=== PATIENT | female | born 1975 | race Caucasian/White ===

== ENCOUNTER 2017-10-16 09:26 | Emergency (ER) | payer MEDICARE, BC, SELFPAY ==
[2017-10-16 09:27] VITALS: BP 127/77; PULSE 70; RESP 20; TEMP 37.1; O2SAT 96; BMI 38.7
[2017-10-16 10:01] LABS: Microscopic,Cath URINE MICROSCOPIC (MICROSCOPIC)
[2017-10-16 10:04] LABS: Appearance,Urine/Cath SL CLOUDY (Clear); Blood, Urine/Cath TRACE-L (Negative); Color,Urine/Cath YELLOW (Yellow); Glucose,Urine/Cath (UA) Negative (Negative); Ketones,Urine/Cath Negative (Negative); Leukocyte Esterase,Cath 2+ (Negative); Nitrate,Cath POSITIVE (Negative); Protein,Urine/Cath TRACE (Negative); Specific Gravity, Urine/Cath >= 1.030 (1.005-1.030)
[2017-10-16 10:05] LABS: Basophils % 0.5 % (0.1-2.0); Eosinophils # 0.3 K/mm3 (0.0-0.4); Hematocrit 43.6 % (37.0-47.0); Hemoglobin 14.4 g/dL (12.2-16.2); Lymphocytes # 2.6 K/mm3 (0.7-4.5); Mean Corpuscular Hemoglobin 30.7 pg (27.0-31.2); Mean Corpuscular Volume 93.2 fl (81-99); Mean Platelet Volume 8.9 fl (7.4-10.4); Monocytes # 0.5 K/mm3 (0.1-1.0); Monocytes % 6.4 % (1.7-9.3); Neutrophils # 4.9 K/mm3 (1.8-7.8); Neutrophils % 58.1 % (37.0-80.0); Platelet Count 268 K/mm3 (142-424); Red Blood Count 4.68 M/mm3 (4.20-5.40); Red Cell Distribution Width 13.7 % (11.5-17.5); White Blood Count 8.5 K/mm3 (4.8-10.8)
[2017-10-16 10:14] LABS: Alanine Aminotransferase 25 U/L (12-78); Albumin Level 3.3 gm/dL (3.4-5.0); Albumin/Globulin Ratio 0.9 (1.1-1.8); Alkaline Phosphatase 76 U/L (46-116); Anion Gap 11.5 mEq/L (5-15); Aspartate Amino Transferase 11 U/L (15-37); Bilirubin,Total 0.6 mg/dL (0.2-1.0); Blood Urea Nitrogen 12 mg/dL (7-18); Calcium 8.4 mg/dL (8.5-10.1); Carbon Dioxide 27 mmol/L (21.0-32.0); Chloride 106 mmol/L (98-107); Creatinine Clearance Estimated 111 mL/min (0-300); Creatinine,Serum 0.94 mg/dL (0.55-1.02); Estimated Glomerular Filt Rate 65 ml/min (>60); GFR (African American) 79 ML/MIN (>60); Globulin 3.7 gm/dl (1.3-3.2); Glucose 91 mg/dL (74-106); Potassium 3.5 mmoL/L (3.5-5.1); Sodium 141 mmol/L (136-145)
[2017-10-16 10:18] LABS: Bilirubin,Cath Negative (Negative)
[2017-10-16 10:19] LABS: Bacteria,Urine/Cath 3+ /lpf; RBC,Urine/Cath Occasional # /hpf (0-3); Squamous Epithelial Ur./Cath Occasional #/hpf (0-5)
--- NOTE | 2017-10-16 10:32 | HMH.EDGENADL ---
ED Disposition Clinical Impression: UTI (urinary tract infection) Disposition: Home, Self-Care Condition on Discharge: Fair Instructions: DI for Urinary Tract Infection (UTI), DI for Urinary Tract Infection in Children Additional Instructions: 1- increase uop. 2- start cipro 500 mg po bid. 3- follow up with Dr House in 2 days for a recheck and urine culture. 4- return for fever, vomitng, or any other sx. Prescriptions: Ciprofloxacin HCl [Cipro 500mg Tab] 500 mg PO BID #14 tab Referrals: Provider,MD Malaika [Primary Care Provider] - Addison Mata MD [Staff Physician] - - Critical Care Critical Care Time: No Attestation: On 10/16/17, the high probability of a clinically significant, sudden or life threatening deterioration of the following system(s) required my full and direct attention, intervention and personal management. The time I documented below is in addition to time spent performing reported procedures but includes the following listed in this critical care notation. Medical Decision Making - Medical Records Medical records reviewed: Yes: I reviewed the patient's medical records. Vital Signs: 10/16/17 09:27 Temperature 98.7 F Temperature Source Oral Pulse Rate [Right Radial] 70 Respiratory Rate 20 Blood Pressure [Right Arm] 127/77 Blood Pressure Mean [Right Arm] 93 Blood Pressure Position [Right Arm] Sitting 02 Sat by Pulse Oximetry 96 Oxygen Delivery Method Room Air - Lab Data Lab Results 10/16/17 09:50: WBC 8.5, RBC 4.68, Hgb 14.4, Hct 43.6, MCV 93.2, MCH 30.7, MCHC 33.0, RDW 13.7, Plt Count 268, MPV 8.9, Neut % (Auto) 58.1, Lymph % (Auto) 31.0, [place] % (Auto) 6.4, Eos % (Auto) 4.0, Baso % (Auto) 0.5, Neut # (Auto) 4.9, Lymph # (Auto) 2.6, [place] # (Auto) 0.5, Eos # (Auto) 0.3, Baso # (Auto) 0.0 10/16/17 09:50: Sodium 141, Potassium 3.5, Chloride 106, Carbon Dioxide 27, Anion Gap 11.5, BUN 12, Creatinine 0.94, Estimated Creat Clear 111, Estimated GFR 65, Est GFR ( Amer) 79, Glucose 91, Calcium 8.4 L, Total Bilirubin 0.6, AST 11 L, ALT 25, Alkaline Phosphatase 76, Total Protein 7.0, Albumin 3.3 L, Globulin 3.7 H, Albumin/Globulin Ratio 0.9 L 10/16/17 09:50: Urine Color Yellow, Urine Appearance Sl cloudy, Urine pH 6.0, Ur Specific [place] >= 1.030, Urine Protein Trace, Urine Glucose (UA) Negative, Urine Ketones Negative, Urine Blood Trace-l, Urine Nitrate Positive, Urine Bilirubin Negative, Urine Urobilinogen 1.0, Ur Leukocyte Esterase 2+ A, Urine RBC Occasional, Urine WBC 5-10, Ur Squamous Epith Cells Occasional, Urine Bacteria 3+ A Result diagrams: 10/16/17 09:50 10/16/17 09:50 Orders (Tests/Meds): ED MEDICATIONS Generic Name Dose Route Start Last Admin Trade Name Freq PRN Reason Stop Dose Admin Ceftriaxone Sodium 1 gm/ 50 mls @ 100 mls/hr 10/16/17 10:45 Sodium Chloride IV 10/30/17 10:44 Q24H COUNTS INCLUDE 234 BEDS AT THE [facility] ORDERS Category Date Time Status Urine Culture(cathed specimen) Stat Micro 10/16/17 09:50 Received - Zhen Inquiry Pt receiving controlled substance: No Zhen was queried for this patient: No Medical Decision Making Narrative: The patient had no focal complain, fact she had no complaint at all. Her vitals were within normal limits. CBC and CMP were within normal limits. Her urine analysis revealed positive bacteriuria and nitrates. I spoke with Azalea at [facility] and advised her for increased water and Gatorade intake. Observe her urine output. Start her on antibiotic and follow-up with the primary care physician in 2 days for urine culture. General Adult HPI - General Chief complaint: Urogenital-Female Stated complaint: unable to void Mode of Arrival: EMS Limitations: Physical Limitations Description of Symptoms (Recalled from ER Triage Doc. 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
--- NOTE | 2017-10-16 10:38 | ED_ITS ---
ED Disposition Clinical Impression: UTI (urinary tract infection) Disposition: Home, Self-Care Condition on Discharge: Fair Instructions: DI for Urinary Tract Infection (UTI), DI for Urinary Tract Infection in Children Additional Instructions: 1- increase uop. 2- start cipro 500 mg po bid. 3- follow up with Dr House in 2 days for a recheck and urine culture. 4- return for fever, vomitng, or any other sx. Prescriptions: Ciprofloxacin HCl [Cipro 500mg Tab] 500 mg PO BID #14 tab Referrals: Provider,MD Malaika [Primary Care Provider] - Addison Mata MD [Staff Physician] - - Critical Care Critical Care Time: No Attestation: On 10/16/17, the high probability of a clinically significant, sudden or life threatening deterioration of the following system(s) required my full and direct attention, intervention and personal management. The time I documented below is in addition to time spent performing reported procedures but includes the following listed in this critical care notation. Medical Decision Making - Medical Records Medical records reviewed: Yes: I reviewed the patient's medical records. Vital Signs: 10/16/17 09:27 Temperature 98.7 F Temperature Source Oral Pulse Rate [Right Radial] 70 Respiratory Rate 20 Blood Pressure [Right Arm] 127/77 Blood Pressure Mean [Right Arm] 93 Blood Pressure Position [Right Arm] Sitting 02 Sat by Pulse Oximetry 96 Oxygen Delivery Method Room Air - Lab Data Lab Results 10/16/17 09:50: WBC 8.5, RBC 4.68, Hgb 14.4, Hct 43.6, MCV 93.2, MCH 30.7, MCHC 33.0, RDW 13.7, Plt Count 268, MPV 8.9, Neut % (Auto) 58.1, Lymph % (Auto) 31.0 , [place] % (Auto) 6.4, Eos % (Auto) 4.0, Baso % (Auto) 0.5, Neut # (Auto) 4.9, Lymph # (Auto) 2.6, [place] # (Auto) 0.5, Eos # (Auto) 0.3, Baso # (Auto) 0.0 10/16/17 09:50: Sodium 141, Potassium 3.5, Chloride 106, Carbon Dioxide 27, Anion Gap 11.5, BUN 12, Creatinine 0.94, Estimated Creat Clear 111, Estimated GFR 65, Est GFR ( Amer) 79, Glucose 91, Calcium 8.4 L, Total Bilirubin 0.6, AST 11 L, ALT 25, Alkaline Phosphatase 76, Total Protein 7.0, Albumin 3.3 L , Globulin 3.7 H, Albumin/Globulin Ratio 0.9 L 10/16/17 09:50: Urine Color Yellow, Urine Appearance Sl cloudy, Urine pH 6.0, Ur Specific [place] >= 1.030, Urine Protein Trace, Urine Glucose (UA) Negative, Urine Ketones Negative, Urine Blood Trace-l, Urine Nitrate Positive, Urine Bilirubin Negative, Urine Urobilinogen 1.0, Ur Leukocyte Esterase 2+ A, Urine RBC Occasional, Urine WBC 5-10, Ur Squamous Epith Cells Occasional, Urine Bacteria 3+ A Result diagrams: 10/16/17 09:50 10/16/17 09:50 Orders (Tests/Meds): ED MEDICATIONS Generic Name Dose Route Start Last Admin Trade Name Freq PRN Reason Stop Dose Admin Ceftriaxone Sodium 1 gm/ 50 mls @ 100 mls/hr 10/16/17 10:45 Sodium Chloride IV 10/30/17 10:44 Q24H [facility] ORDERS Category Date Time Status Urine Culture(cathed specimen) Stat Micro 10/16/17 09:50 Received - Zhen Inquiry Pt receiving controlled substance: No Zhen was queried for this patient: No Medical Decision Making Narrative: The patient had no focal complain, fact she had no complaint at all. Her vitals were within normal limits. CBC and CMP were within normal limits. Her urine analysis revealed positive bacteriuria and nitrates. [facility] [place] [facility]
[2017-10-16 11:28] VITALS: BP 132/74; PULSE 78; RESP 20; TEMP 36.6; O2SAT 100
== END 2017-10-16 11:28 | disposition home or self-care (01) ==
PROVIDERS: Emergency Provider Emergency Medicine
DX: N39.0 Urinary tract infection, site not specified (principal); I69.351 Hemiplegia and hemiparesis following cerebral infarction affecting right dominant side; F17.210 Nicotine dependence, cigarettes, uncomplicated
CPT/HCPCS: 80053; 81001; 85025; 87086; 87088; 87186; 96365; 99282

== ENCOUNTER → 2017-11-09 09:51 | Outpatient (POV) | payer MEDICARE, BC, SELFPAY | PROVIDERS: Visit Provider Podiatrist | DX: Z00.00 Encounter for general adult medical examination without abnormal findings (principal) ==

== ENCOUNTER → 2017-12-14 09:21 | Outpatient (POV) | payer MEDICARE, BC, SELFPAY | PROVIDERS: Visit Provider Podiatrist | DX: Z00.00 Encounter for general adult medical examination without abnormal findings (principal) ==

== ENCOUNTER → 2018-08-22 16:16 | Outpatient (CLI) | payer MEDICARE, BC, SELFPAY ==
--- NOTE | 2018-08-22 16:34 | MM_ITS ---
MM Dig screening mamm BI w/CAD CAD Screening COMPARISON: None, this is baseline INDICATION: There is a history of breast cancer patient's mother diagnosed at age 50 TECHNIQUE: Standard CC and MLO images were obtained. R2 CAD reviewed. FINDINGS: There is a diffusely dense and heterogenic parenchymal pattern bilaterally. There is an asymmetric. Nodular density inner quadrant of the left breast at the 9:00 position with benign features however since is the baseline study recommend patient return for spot compression views and ultrasound for additional evaluation. There is a faint asymmetric density adjacent to the nodular density which likely is a summation shadow but recommend that this area is included on the spot compression views as well. There are no suspicious microcalcifications. IMPRESSION: Moderately dense parenchymal pattern with one and possibly 2 asymmetric densities left breast BI-RADS Category: 0 Need Additional Imaging Evaluation RECOMMENDED FOLLOW-UP: IMM - IMMEDIATE FOLLOW-UP RECOMMENDED (A letter has been sent to the patient regarding results of the study.)
== END ==
PROVIDERS: PCP Emergency Medicine; Visit Provider Emergency Medicine
DX: Z12.31 Encounter for screening mammogram for malignant neoplasm of breast (principal)
CPT/HCPCS: 77067

== ENCOUNTER → 2018-09-02 14:19 | Outpatient (CLI) | payer MEDICARE, BC, SELFPAY ==
--- NOTE | 2018-09-02 14:21 | MM_ITS ---
MM Dig mamm DX unilat LT CAD, US breast LT complete INDICATION: Follow-up abnormal mammogram ORDERING PHYSICIAN: Addison Mata MD PATIENT AGE: 43 years COMPARISON: 08/22/2018 TECHNIQUE: Spot compression views performed of the left breast along with left breast ultrasound FINDINGS: There is an 8 x 5 mm hyperdense nodule in the 9-10 o'clock region of the left breast.. No other significant anomalies are evident. No abnormal calcifications. Left breast ultrasound: There is a hypoechoic 5 x 5 mm nodule oval in nature corresponding to the mammographic abnormality. There are low-level echoes within this lesion and there is some posterior acoustical shadowing. This does not represent a simple cyst by ultrasound. This is mildly suspicious and biopsy is recommended. IMPRESSION: Hypoechoic nodule in the 9-10 o'clock region of the left breast mildly suspicious. Biopsy recommended. Recommend ultrasound guided mammotome biopsy BI-RADS Category: 4 Suspicious Abnormality-Biopsy Considered RECOMMENDED FOLLOW-UP: BIO - BIOPSY RECOMMENDED (A letter has been sent to the patient regarding results of the study.)
== END ==
PROVIDERS: PCP Emergency Medicine; Visit Provider Emergency Medicine
DX: R92.8 Other abnormal and inconclusive findings on diagnostic imaging of breast (principal)
CPT/HCPCS: 76641; 77065

== ENCOUNTER → 2018-10-01 09:38 | Outpatient (CLI) | payer MEDICARE, BC, SELFPAY ==
--- NOTE | 2018-10-01 10:22 | US_ITS ---
US mammotome bx LT, MM clip placement LT, US breast LT complete INDICATION: Left breast nodule ORDERING PHYSICIAN: Addison Mata MD PATIENT AGE: 43 years COMPARISON: 09/02/2018 Prebiopsy ultrasound: Ultrasound performed of the left breast for prebiopsy planning confirming the presence of an 8 x 5 mm hypoechoic nodule in the 10:00 region of the left breast corresponding to the previous exam. TECHNIQUE: Following obtaining informed consent under aseptic conditions and local anesthesia with 1% buffered lidocaine and deeper anesthesia with a 22-gauge spinal needle with lidocaine mixed with epinephrine a skin yehuda was performed and 9 gauge mammotomy needle inserted and confirmed to be in satisfactory position. Multiple mammotome biopsies are obtained. The nodule was much smaller to not visible at the end of the exam. A nonferromagnetic clip was then placed and confirmed to be in adequate position on postbiopsy mammogram. The patient tolerated the procedure well and left radiology suite in stable condition without evidence of immediate complication. Postbiopsy mammogram: Postbiopsy changes are present with a clip in place in the medial aspect of the left breast. The nodule previously noted is much smaller. Pathology: Fibroadenoma toward hyperplasia. Negative for atypia or malignancy IMPRESSION: Successful and uneventful ultrasound-guided mammotome biopsy of the left breast showing benign findings. Recommend 6 month mammographic and sonographic follow-up per routine biopsy protocol
== END ==
PROVIDERS: PCP Emergency Medicine; Visit Provider Emergency Medicine
DX: N63.20 Unspecified lump in the left breast, unspecified quadrant (principal); R92.8 Other abnormal and inconclusive findings on diagnostic imaging of breast
CPT/HCPCS: 19083; 76641; 76942; 77065; 88305; C2618

== ENCOUNTER 2020-03-27 15:04 | Emergency (ER) | payer MEDICARE, BC, SELFPAY ==
--- NOTE | 2020-03-27 15:08 | HMH.EDGENADL ---
ED Disposition Clinical Impression: Right leg pain Pain in head Qualifiers: Headache type: post-traumatic Headache chronicity pattern: acute headache Intractability: not intractable Qualified Code(s): G44.319 - Acute post-traumatic headache, not intractable Disposition: Home, Self-Care Condition on Discharge: Good Additional Instructions: Follow up with PCP in the next 2-3 days. Tylenol for pain. If you have any new, changing, worsening, or concerning symptoms, come back to the ED. Referrals: Addison Mata MD [Primary Care Provider] - Time of Disposition: 17:06 - Critical Care Critical Care Time: No Attestation: On , the high probability of a clinically significant, sudden or life threatening deterioration of the following system(s) required my full and direct attention, intervention and personal management. The time I documented below is in addition to time spent performing reported procedures but includes the following listed in this critical care notation. Medical Decision Making - Medical Records Medical records reviewed: Yes: I reviewed the patient's medical records. MR Comment: 44yo F with hx of CVA prior comes to the ED after mechanical fall due to concern because she hit the back of her head and her right leg and was having pain. She arrives to the ED hemodynamically stable with reassuring vitals and looks well on exam. She has deficits from her prior CVA, but is baseline per report. She denies LOC, no other pain or concerns, no CP, syncope, SOA. Will get CT head and XR of the tib fib and reassess. On reassessment, she remains well. Imaging personally reviewed and read by radiology and no signs of acute injury. She remains well an asymptomatic here. Tolerating PO, ambulating per her norm, no symptoms of concussion. Gave strict return precautions and discharge instructions and she verbalized an understanding and agreed to the plan. Safe to discharge. - Zhen Inquiry Pt receiving controlled substance: No Vital Signs: 03/27/20 15:09 03/27/20 17:09 Temperature 98.3 F Temperature Source Temporal Artery Scan Pulse Rate [Right] 79 65 Respiratory Rate 16 16 Blood Pressure [Right Arm] 110/70 129/60 Blood Pressure Mean [Right Arm] 83 83 Blood Pressure Source [Right Arm] Automatic Cuff Automatic Cuff Blood Pressure Position [Right Arm] Sitting Sitting 02 Sat by Pulse Oximetry 100 100 Oxygen Delivery Method Room Air Orders (Tests/Meds): ORDERS Category Date Time Status CT head/brain wo con Stat Cat Scan 03/27/20 15:34 Taken XR tibia fibula RT 2V Stat Exams 03/27/20 15:37 Taken General Adult HPI - General Stated complaint: LEG PAIN Time Seen by Provider: 03/27/20 15:08 - History of Present Illness HPI narrative: 44yo F with a history of prior CVA presents the emergency department after a fall. She states that she was in the bathroom and her toe got caught on something, causing her to fall. She denies loss of consciousness. She denies any neck or back pain. She denies any chest or abdominal pain. She states she has had mild headache since the event, no other associated symptoms. Makes better worse. She also complains of right [place] pain since the fall. Has been ambulatory. No numbness or tingling. She denies any other symptoms or concerns at this time. - Related Data Previous Rx's Medication Instructions Recorded Benzonatate [Tessalon Perle 100mg 100 mg PO TIDP PRN #20 cap 10/02/19 Cap] levoFLOXacin [Levaquin 500mg 500 mg PO DAILY #7 tab 10/02/19 tab] Allergies Allergy/AdvReac Type Severity Reaction Status Date / Time No Known Allergies Allergy Verified 10/16/17 09:35 [facility] History - Hepatitis A Screen Attestation statement:: This patient has been screened for Hepatitis A risk factors. Medical History: Denies:: Cancer, Diabetes Mellitus Type 1, Diabetes Mellitus Type 2, MRSA Amputation: No Fractures: No - Social History Smoking Status: C
[2020-03-27 15:09] VITALS: BP 110/70; PULSE 79; RESP 16; TEMP 36.8; O2SAT 100; BMI 36.6
--- NOTE | 2020-03-27 15:34 | CT_ITS ---
PROCEDURE: CT HEAD/BRAIN WO CON CLINICAL INDICATION: fall Head injury with headache/pain, contusion, abrasion or hematoma COMPARISON: No exams were available for comparison TECHNIQUE: Axial images obtained. All CT scans at the facility use one or more dose reduction, viz: automated exposure control, ma/kV adjustment per patient size (including targeted exams where dose is matched to indication, i.e. head), or iterative reconstruction technique. FINDINGS: Postoperative change left temporoparietal down with associated encephalomalacia changes within the left temporal and parietal lobe. No midline shift, mass effect, intracranial hemorrhage, or hydrocephalus. IMPRESSION: Postsurgical changes with encephalomalacia, no acute finding Dictated b Gregory Nayak MD 03/28/2020 08:11 Gregory Nayak MD in [facility] 03/28/2020 08:11
--- NOTE | 2020-03-27 15:37 | XR_ITS ---
PROCEDURE: XR TIBIA FIBULA RT 2V CLINICAL INDICATION: trauma, pain Posttraumatic pain COMPARISON: No exams were available for comparison FINDINGS: No fracture or dislocation. No lytic or blastic change. There is normal mineralization. The joint spaces are well-preserved. No significant degenerative/arthritic changes. No erosive changes evident. Other findings:None. IMPRESSION: No acute findings. Dictated b Gregory Nayak MD 03/28/2020 07:18 Gregory Nayak MD in [facility] 03/28/2020 07:18
[2020-03-27 17:09] VITALS: BP 129/60; PULSE 65; RESP 16; O2SAT 100
--- NOTE | 2020-03-27 17:18 | PC.NURSE ---
Notified Jaime Paniagua pt was ready to be d/c
--- NOTE | 2020-03-27 17:52 | PC.NURSE ---
Called Jaime Paniagua
[2020-03-27 18:07] VITALS: BP 112/70; PULSE 70; RESP 16; TEMP 36.6; O2SAT 98
== END 2020-03-27 18:08 | disposition home or self-care (01) ==
PROVIDERS: Emergency Provider Emergency Medicine; PCP Emergency Medicine
DX: M79.604 Pain in right leg (principal); G44.319 Acute post-traumatic headache, not intractable; Z86.73 Personal history of transient ischemic attack (TIA), and cerebral infarction without residual deficits; W01.0XXA Fall on same level from slipping, tripping and stumbling without subsequent striking against object, initial encounter; Y92.012 Bathroom of single-family (private) house as the place of occurrence of the external cause; F17.210 Nicotine dependence, cigarettes, uncomplicated
CPT/HCPCS: 70450; 73590; 99282

== ENCOUNTER 2020-05-25 22:48 | Emergency (ER) | payer MEDICARE, BC, SELFPAY ==
[2020-05-25 22:49] VITALS: BP 109/67; PULSE 88; RESP 16; O2SAT 97; BMI 45.7
[2020-05-25 22:51] VITALS: TEMP 36.2
--- NOTE | 2020-05-25 22:59 | CT_ITS ---
PROCEDURE: CT HEAD/BRAIN WO CON CLINICAL INDICATION: AMS Altered mental status, altered level of consciousness, confusion, disorientation COMPARISON: CT CT HEAD/BRAIN WO CON from 03/27/2020 TECHNIQUE: Axial images obtained. All CT scans at the facility use one or more dose reduction, viz: automated exposure control, ma/kV adjustment per patient size (including targeted exams where dose is matched to indication, i.e. head), or iterative reconstruction technique. FINDINGS: No midline shift, mass effect, intracranial hemorrhage, hydrocephalus, or extra-axial fluid collection is evident. There are encephalomalacia changes in the left parietal and temporal lobe and within the left basal ganglia. There is mild ex vacuo enlargement of the left lateral ventricle. These findings are not significantly changed. The calvarium has an unremarkable appearance. No mastoid effusion. No sinus air-fluid level. Post craniotomy changes are present in the left temporal parietal region IMPRESSION: No change with no acute finding. Dictated by: Gregory Nayak MD 05/26/2020 05:34 Gregory Nayak MD in [facility] 05/26/2020 05:34
[2020-05-25 23:06] LABS: Basophils # 0.1 K/mm3 (0-0.2); Basophils % 0.7 % (0.1-2.0); Eosinophils % 0.4 % (0.1-12.0); Hematocrit 40.8 % (37.0-47.0); Lymphocytes # 2.3 K/mm3 (0.7-4.5); Lymphocytes % 24.6 % (10-50); Mean Corpuscular HGB Conc 31.9 g/dL (31.8-35.4); Mean Corpuscular Hemoglobin 30.3 pg (27.0-31.2); Mean Corpuscular Volume 95.2 fl (81-99); Mean Platelet Volume 7.8 fl (7.4-10.4); Monocytes # 0.4 K/mm3 (0.1-1.0); Monocytes % 4.7 % (1.7-9.3); Neutrophils # 6.5 K/mm3 (1.8-7.8); Neutrophils % 69.4 % (37.0-80.0); Platelet Count 284 K/mm3 (142-424); Red Blood Count 4.28 M/mm3 (4.20-5.40); Red Cell Distribution Width 13.7 % (11.5-17.5); White Blood Count 9.4 K/mm3 (4.8-10.8)
[2020-05-25 23:08] LABS: Chloride 105 mmol/L (98-107); Sodium 136 mmol/L (136-145)
[2020-05-25 23:09] LABS: Potassium 3.8 mmoL/L (3.5-5.1)
[2020-05-25 23:11] LABS: Alanine Aminotransferase 23 U/L (12-78); Albumin Level 3.5 g/dl (3.5-5.0); Albumin/Globulin Ratio 1.1 (1.1-1.8); Alkaline Phosphatase 92 U/L (38-126); Anion Gap 9.8 mEq/L (5-15); Aspartate Amino Transferase 21 U/L (14-36); Bilirubin,Total 0.3 mg/dl (0.2-1.3); Blood Urea Nitrogen 14 mg/dl (7-17); Calcium 9.1 mg/dl (8.4-10.2); Carbon Dioxide 25 mmol/L (22.0-30.0); Creatinine Clearance Estimated 52 mL/min (50-200); Estimated Glomerular Filt Rate 54 ml/min (>60); GFR (African American) 65 ML/MIN (>60); Globulin 3.2 g/dL (1.3-3.2); Glucose 139 mg/dl (74-100); Total Protein,Serum 6.7 g/dl (6.3-8.2)
--- NOTE | 2020-05-25 23:12 | HMH.EDAMS ---
ED Disposition Clinical Impression: History of CVA (cerebrovascular accident) Altered mental status Qualifiers: Altered mental status type: transient alteration of awareness Qualified Code(s): R40.4 - Transient alteration of awareness Disposition: Home, Self-Care Condition on Discharge: Good Instructions: DI for Altered Mental Status Additional Instructions: resume meds Referrals: Addison Mata MD [Primary Care Provider] - - Critical Care Critical Care Time: No Attestation: On 05/25/20, the high probability of a clinically significant, sudden or life threatening deterioration of the following system(s) required my full and direct attention, intervention and personal management. The time I documented below is in addition to time spent performing reported procedures but includes the following listed in this critical care notation. Medical Decision Making - Medical Records Medical records reviewed: Yes: I reviewed the patient's medical records. - Zhen Inquiry Pt receiving controlled substance: No Vital Signs: 05/25/20 22:49 05/25/20 22:51 05/26/20 00:48 Temperature 97.1 F L Temperature Source Rectal Pulse Rate [Left] 88 76 Respiratory Rate 16 16 Blood Pressure [Left Arm] 109/67 L 124/82 Blood Pressure Mean [Left Arm] 81 96 Blood Pressure Source [Left Arm] Automatic Cuff Automatic Cuff Blood Pressure Position [Left Arm] Supine Sitting 02 Sat by Pulse Oximetry 97 99 Oxygen Delivery Method Room Air Room Air - Lab Data Lab results reviewed: Yes: I reviewed the patient's lab results. Lab Results 05/25/20 23:00: WBC 9.4, RBC 4.28, Hgb 13.0, Hct 40.8, MCV 95.2, MCH 30.3, MCHC 31.9, RDW 13.7, Plt Count 284, MPV 7.8, Neut % (Auto) 69.4, Lymph % (Auto) 24.6, [place] % (Auto) 4.7, Eos % (Auto) 0.4, Baso % (Auto) 0.7, Neut # (Auto) 6.5, Lymph # (Auto) 2.3, [place] # (Auto) 0.4, Eos # (Auto) 0.0, Baso # (Auto) 0.1, ESR 52 H 05/25/20 23:00: Sodium 136, Potassium 3.8, Chloride 105, Carbon Dioxide 25, Anion Gap 9.8, BUN 14, Creatinine 1.10 H, Estimated Creat Clear 52, Estimated GFR 54 L, Est GFR ( Amer) 65, Glucose 139 H, Calcium 9.1, Total Bilirubin 0.3, AST 21, ALT 23, Alkaline Phosphatase 92, C-Reactive Protein 14.3 H, Total Protein 6.7, Albumin 3.5, Globulin 3.2, Albumin/Globulin Ratio 1.1 05/25/20 23:00: Plasma/Serum Alcohol < 10 05/25/20 23:10: Urine Opiates Screen Negative, Urine Methadone Screen Negative, Ur Barbituates Screen Negative, Ur Phencyclidine Scrn Negative, Ur Amphetamines Screen Negative, U Benzodiazepines Scrn Negative, Urine Cocaine Screen Negative, U Marijuana (THC) Screen Negative 05/25/20 23:10: Urine Color Yellow, Urine Appearance Clear, Urine pH 5.5, Ur Specific [place] >= 1.030, Urine Protein Negative, Urine Glucose (UA) Negative, Urine Ketones Negative, Urine Blood Negative, Urine Nitrate Negative, Urine Bilirubin Negative, Urine Urobilinogen 0.2, Ur Leukocyte Esterase Negative, Urine RBC 3-5, Urine WBC 3-5, Urine Bacteria 1+, Hyaline Casts 10-20, Urine Mucus 1+ Result diagrams: 05/25/20 23:00 05/25/20 23:00 Orders (Tests/Meds): ED MEDICATIONS Generic Name Dose Route Start Last Admin Trade Name Freq PRN Reason Stop Dose Admin Sodium Chloride 1,000 mls @ 999 mls/hr 05/25/20 23:00 05/25/20 23:30 Sod Chlor 0.9% 1000ml Bag IV 05/26/20 00:00 999 mls/hr .[id number] SAMARA Administration ORDERS Category Date Time Status CT head/brain wo con Stat Cat Scan 05/25/20 22:59 Taken - CT Data CT Scan: Head Time Received: 00:[address] Reviewed: Yes: I have viewed the radiologist's interpretation Preliminary Findings: Normal/NAD - Reevaluation(s) Time: 01:44 Reevaluation #1: improved sx Altered Mental Status HPI - General Chief Complaint: Altered Mental Status Stated Complaint: AMS Time Seen by Provider: 05/25/20 23:00 Mode of Arrival: EMS Source of Information: Patient, EMS, Medical Record Limitations: Altered Mental Status Description of Symptoms
[2020-05-25 23:13] LABS: Ethyl Alcohol < 10 mg/dl (0-10)
[2020-05-25 23:16] LABS: Microscopic, Urine URINE MICROSCOPIC (MICROSCOPIC)
[2020-05-25 23:17] LABS: C-Reactive Protein 14.3 mg/L (0-4)
[2020-05-25 23:21] LABS: Appearance,Urine CLEAR (Clear); Bilirubin,Urine Negative (Negative); Blood, Urine Negative (Negative); Color,Urine YELLOW (Yellow); Glucose,Urine (UA) Negative (Negative); Ketones,Urine Negative (Negative); Leukocyte Esterase,Urine Negative (Negative); Nitrate,Urine Negative (Negative); PH,Urine 5.5 (5.0-8.5); Protein,Urine Negative (Negative); Specific Gravity, Urine >= 1.030 (1.005-1.030); Urobilinogen,Urine 0.2 EU/dl (0.2)
[2020-05-25 23:27] LABS: Bacteria,Urine 1+ /lpf; Mucus,Urine 1+ /lpf
[2020-05-25 23:30] LABS: Barbiturates Screen,Urine Negative ng/ml (<200)
[2020-05-25 23:31] LABS: Amphetamine/Metha Screen,Urine Negative ng/ml (<1000); Benzodiazepines Screen,Urine Negative ng/ml (<200)
[2020-05-25 23:32] LABS: Cannabinoid Screen,Urine Negative ng/ml (<50)
[2020-05-25 23:33] LABS: Cocaine Screen,Urine Negative ng/ml (<300); Methadone Screen,Urine Negative ng/ml (<300)
[2020-05-25 23:34] LABS: Opiate Screen,Urine Negative ng/ml (<300)
[2020-05-25 23:35] LABS: Phencyclidine Screen,Urine Negative ng/ml (<25)
[2020-05-26 00:31] LABS: Erythrocyte Sedimentation Rate 52 mm/hr (0-20)
[2020-05-26 00:48] VITALS: BP 124/82; PULSE 76; RESP 16; O2SAT 99
--- NOTE | 2020-05-26 01:50 | PC.NURSE ---
called Jaime Paniagua for pts ride at discharge they stated they would come pick her up
[2020-05-26 01:54] VITALS: BP 114/82; PULSE 72; RESP 16; TEMP 36.6; O2SAT 95
--- NOTE | 2020-05-26 02:15 | PC.NURSE ---
pt was able to dress herself and ambulate independently to the bathroom. tolerated well.
[2020-07-08 09:29] LABS: POC Glucose,Bedside 144 (70-110)
== END 2020-05-26 02:21 | disposition home or self-care (01) ==
PROVIDERS: Emergency Provider Emergency Medicine; PCP Emergency Medicine
DX: R40.4 Transient alteration of awareness (principal); Z86.73 Personal history of transient ischemic attack (TIA), and cerebral infarction without residual deficits; F17.210 Nicotine dependence, cigarettes, uncomplicated
CPT/HCPCS: 70450; 80053; 80305; 81001; 82962; 85025; 85651; 86140; 96365; 99283

== ENCOUNTER 2021-05-07 14:33 | Emergency (ER) | payer MEDICARE, BC, SELFPAY ==
[2021-05-07 14:34] VITALS: BP 115/70; PULSE 76; RESP 16; TEMP 36.8; O2SAT 96; BMI 35.4
--- NOTE | 2021-05-07 15:15 | CT_ITS ---
PROCEDURE INFORMATION: Exam: CT Head Without Contrast Exam date and time: 05/07/2021 3:15 PM Age: 45 years old Clinical indication: Injury or trauma; Fall; Blunt trauma (contusions or hematomas); Additional info: Fall; Knee pain/swelling and facial swelling TECHNIQUE: Imaging protocol: Computed tomography of the head without contrast. Radiation optimization: All CT scans at this facility use at least one of these dose optimization techniques: automated exposure control; mA and/or kV adjustment per patient size (includes targeted exams where dose is matched to clinical indication); or iterative reconstruction. COMPARISON: CT HEAD/BRAIN WO CON 05/25/2020 11:20 PM FINDINGS: Brain: Stable encephalomalacia on the left. There is no evidence of intracranial hemorrhage. No abnormal extra-axial fluid collections are identified. No mass effect or midline shift is seen. Cerebral ventricles: Ex vacuo enlargement of the left lateral ventricle. Paranasal sinuses: The visualized sinuses are unremarkable. Mastoid air cells: Minimal partial opacification of the mastoid air cells bilaterally. Bones/joints: Previous left craniotomy. No calvarial fracture is seen. Soft tissues: Right frontal scalp hematoma. IMPRESSION: 1. No acute intracranial abnormality demonstrated by CT. 2. Previous left craniotomy with underlying encephalomalacia.
--- NOTE | 2021-05-07 15:15 | XR_ITS ---
PROCEDURE INFORMATION: Exam: XR Left Knee Exam date and time: 05/07/2021 3:15 PM Age: 45 years old Clinical indication: Injury or trauma; Fall; Blunt trauma; Knee; Left; Additional info: Fall; L knee pain/swelling TECHNIQUE: Imaging protocol: XR Left knee. Views: 3 views. COMPARISON: No relevant prior studies available. FINDINGS: Bones/joints: There is a 2 cm osteochondroma at the medial tibial metaphysis. No acute fracture or dislocation. No definite joint effusion. Soft tissues: There may be periarticular soft tissue swelling. IMPRESSION: 1. No acute fracture or dislocation. 2. Osteochondroma at the medial tibial metaphysis.
[2021-05-07 16:47] VITALS: BP 112/76; RESP 18; O2SAT 98
[2021-05-07 17:00] VITALS: BP 123/84; RESP 21; O2SAT 97
--- NOTE | 2021-05-07 18:36 | HMH.EDGENADL ---
ED Disposition Clinical Impression: Swelling of left knee joint Traumatic hematoma of forehead Qualifiers: Encounter type: initial encounter Qualified Code(s): S00.83XA - Contusion of other part of head, initial encounter Fall Qualifiers: Encounter type: initial encounter Qualified Code(s): W19.XXXA - Unspecified fall, initial encounter Disposition: Home, Self-Care Condition on Discharge: Good Instructions: How to Prevent Falls Referrals: Addison Mata MD [Primary Care Provider] - - Critical Care Critical Care Time: No Attestation: On 05/07/21, the high probability of a clinically significant, sudden or life threatening deterioration of the following system(s) required my full and direct attention, intervention and personal management. The time I documented below is in addition to time spent performing reported procedures but includes the following listed in this critical care notation. Medical Decision Making - Medical Records Medical records reviewed: Yes: I reviewed the patient's medical records. - Zhen Inquiry Pt receiving controlled substance: No Vital Signs: 05/07/21 14:34 Temperature 98.3 F Temperature Source Oral Pulse Rate [Radial] 76 Respiratory Rate 16 Blood Pressure [Right Arm] 115/70 Blood Pressure Mean [Right Arm] 85 Blood Pressure Position [Right Arm] Sitting 02 Sat by Pulse Oximetry 96 Oxygen Delivery Method Room Air Orders (Tests/Meds): ED MEDICATIONS Discontinued Medications Generic Name Dose Route Start Last Admin Trade Name Freq PRN Reason Stop Dose Admin Acetaminophen 650 mg 05/07/21 15:18 05/07/21 15:37 Acetaminophen 325mg Tab PO 05/07/21 15:19 650 mg ONCE ONE Administration - CT Data CT Scan: Head Time Received: 17:[address] Reviewed: Yes: I have reviewed the patient's CT results, I discussed the CT results w/the radiologist, I have viewed the radiologist's interpretation Preliminary Findings: Normal/NAD, Abnormal (Intensive prior stroke with encephalomalacia of the left hemisphere) Medical Decision Narrative: 45-year-old female with past medical history of prior CVA and right-sided residual deficits who presents to the emergency department with complaints of pain in left knee and right side of head after a fall. Patient states she tripped while ambulating with her cane due to residual right-sided deficits from prior stroke. She did not syncopized, she did not lose consciousness when she hit her head. She does not take a blood thinner. Significant swelling of left knee on exam we will obtain three-view x-rays and given significant hematoma right forehead we will obtain CT of her head. Both of these imaging studies are unremarkable, patient has prior encephalomalacia from stroke, but no new findings. No acute fracture or dislocation of the left knee. This time, patient's pain was improved with Tylenol and she was able to ambulate in the emergency department. She is appropriate for discharge at this time and is amenable to this plan. General Adult HPI - General Chief complaint: Fall Stated complaint: fall Time Seen by Provider: 05/07/21 14:45 Mode of Arrival: EMS Source of Information: Patient Limitations: No Limitations Description of Symptoms (Recalled from ER Triage Doc. by RN): TO ED PER SQUAD PT STATES TRIPPED AND FELL INJURING LT KNEE AND RT SIDE FOREHEAD. DENIES ANY LOC. - History of Present Illness HPI narrative: 45-year-old female with past medical history of CVA and residual right-sided deficits who ambulates with a right leg brace who fell today onto hard surface causing her to have bruising, pain, and swelling of the left knee as well as a right forehead hematoma. She is brought in by EMS for these things. States she currently has a headache as well as left knee pain, she states she ambulates with a cane at baseline, was able to get up but has significant swelling and ecchymosis of the knee so presented to the emergency de
[2021-05-07 19:06] VITALS: BP 128/70; PULSE 72; RESP 16; TEMP 36.8; O2SAT 98
== END 2021-05-07 19:08 | disposition home or self-care (01) ==
PROVIDERS: Emergency Provider Emergency Medicine; PCP Emergency Medicine
DX: S00.83XA Contusion of other part of head, initial encounter (principal); M25.462 Effusion, left knee; W01.0XXA Fall on same level from slipping, tripping and stumbling without subsequent striking against object, initial encounter; Y92.9 Unspecified place or not applicable; Z86.73 Personal history of transient ischemic attack (TIA), and cerebral infarction without residual deficits; F17.210 Nicotine dependence, cigarettes, uncomplicated
CPT/HCPCS: 70450; 73562; 99282

== ENCOUNTER 2022-04-06 21:38 | Emergency (ER) | payer MEDICARE, BC, SELFPAY ==
--- NOTE | 2022-04-06 21:29 | ECG_ITS ---
APPROVED REPORT Exam: Resting ECG HR:93 bpm ECG Measurements Heart Rate 93 AXES MO 169 P 50 QRSd 88 QRS 19 QT 310 T 10 QTc 360 Conclusion SINUS RHYTHM LOW QRS VOLTAGE IN PRECORDIAL LEADS [QRS DEFLECTION < 1.0 mV IN CHEST LEADS] NONSPECIFIC T-WAVE ABNORMALITY BORDERLINE ECG UNCONFIRMED REPORT Electronically signed by : Tate Nuno MD 04/07/2022 17:01:59
[2022-04-06 21:32] VITALS: BP 146/88; PULSE 96; RESP 18; TEMP 36.6; O2SAT 99; BMI 37.8
--- NOTE | 2022-04-06 21:33 | XR_ITS ---
PROCEDURE INFORMATION: Exam: XR Chest Exam date and time: 04/06/2022 9:54 PM Age: 46 years old Clinical indication: Sternal or substernal pain; Additional info: Chest pain TECHNIQUE: Imaging protocol: Radiologic exam of the chest. Views: 1 view. COMPARISON: CR XR CHEST 2V 10/02/2019 4:30 PM FINDINGS: Lungs: Normal. Pleural spaces: Unremarkable. No pleural effusion. No pneumothorax. Heart/Mediastinum: Normal. Bones/joints: No acute abnormality. IMPRESSION: No acute findings.
--- NOTE | 2022-04-06 21:33 | CT_ITS ---
PROCEDURE INFORMATION: Exam: CT Head Without Contrast Exam date and time: 04/06/2022 9:36 PM Age: 46 years old Clinical indication: Pain; Headache; Prior surgery; Patient HX: HX stroke 11 years ago TECHNIQUE: Imaging protocol: Computed tomography of the head without contrast. Radiation optimization: All CT scans at this facility use at least one of these dose optimization techniques: automated exposure control; mA and/or kV adjustment per patient size (includes targeted exams where dose is matched to clinical indication); or iterative reconstruction. COMPARISON: CT HEAD/BRAIN WO CON 05/07/2021 3:51 PM FINDINGS: Brain: Left temporoparietal encephalomalacia. No intracranial mass, acute hemorrhage, or acute infarction. Cerebral ventricles: Mild ex vacuo dilation of the left lateral ventricle. Remainder ventricular system unremarkable. Paranasal sinuses: Visualized sinuses are unremarkable. No fluid levels. Mastoid air cells: Normal as visualized. Bones/joints: Changes of prior temporoparietal craniotomy. Soft tissues: Unremarkable. IMPRESSION: No acute intracranial abnormality.
[2022-04-06 21:49] LABS: Basophils # 0.2 K/mm3 (0-0.2); Basophils % 1.5 % (0.1-2.0); Eosinophils # 0.1 K/mm3 (0.0-0.4); Eosinophils % 1.5 % (0.1-12.0); Hemoglobin 12.8 g/dL (12.2-16.2); Lymphocytes # 0.8 K/mm3 (0.7-4.5); Lymphocytes % 8.2 % (10-50); Mean Corpuscular Hemoglobin 32.1 pg (27.0-31.2); Mean Corpuscular Volume 100.3 fl (81-99); Mean Platelet Volume 8.2 fl (7.4-10.4); Monocytes # 0.4 K/mm3 (0.1-1.0); Monocytes % 3.9 % (1.7-9.3); Neutrophils % 84.9 % (37.0-80.0); Platelet Count 285 K/mm3 (142-424); Red Blood Count 3.99 M/mm3 (4.20-5.40); Red Cell Distribution Width 14.6 % (11.5-17.5); White Blood Count 9.4 K/mm3 (4.8-10.8)
--- NOTE | 2022-04-06 21:53 | HMH.EDGENADL ---
ED Disposition Clinical Impression: Tension headache, Chest wall pain Disposition: Home, Self-Care Condition on Discharge: Good Instructions: DI for Headache Additional Instructions: You have been evaluated for headache and chest pain. Please continue to monitor your symptoms closely. Tylenol Motrin for aches and pains. Follow-up with your primary care doctor in 1 to 2 days for symptom recheck. Return to the emergency department at once for any new or worsening symptoms, chest pain with exertion, difficulty breathing, return of headache, vision changes, nausea, vomiting or any other concerns. Referrals: Provider,Referral, [Primary Care Provider] - Time of Disposition: 00:46 - Critical Care Critical Care Time: No Attestation: On 04/06/22, the high probability of a clinically significant, sudden or life threatening deterioration of the following system(s) required my full and direct attention, intervention and personal management. The time I documented below is in addition to time spent performing reported procedures but includes the following listed in this critical care notation. Medical Decision Making - Medical Records Medical records reviewed: Yes: I reviewed the patient's medical records. - Zhen Inquiry Pt receiving controlled substance: No Vital Signs: 04/06/22 21:32 Temperature 98 F Temperature Source Oral Pulse Rate [Apical] 96 H Respiratory Rate 18 Blood Pressure [Right Arm] 146/88 H Blood Pressure Mean [Right Arm] 107 Blood Pressure Source [Right Arm] Automatic Cuff Blood Pressure Position [Right Arm] Sitting 02 Sat by Pulse Oximetry 99 Oxygen Delivery Method Room Air - Lab Data Lab Results 04/06/22 21:39: WBC 9.4, RBC 3.99 L, Hgb 12.8, Hct 40.0, MCV 100.3 H, MCH 32.1 H, MCHC 32.0, RDW 14.6, Plt Count 285, MPV 8.2, Neut % (Auto) 84.9 H, Lymph % (Auto) 8.2 L, [place] % (Auto) 3.9, Eos % (Auto) 1.5, Baso % (Auto) 1.5, Neut # (Auto) 8.0 H, Lymph # (Auto) 0.8, [place] # (Auto) 0.4, Eos # (Auto) 0.1, Baso # (Auto) 0.2 04/06/22 21:39: Sodium 137, Potassium 4.1, Chloride 102, Carbon Dioxide 28, Anion Gap 11.1, BUN 13, Creatinine 1.20 H, Estimated Creat Clear 92, Estimated GFR 48 L, Est GFR ( Amer) 59, Glucose 99, Calcium 8.9, Total Bilirubin 0.4, AST 37 H, ALT 35, Alkaline Phosphatase 138 H, Troponin I < 0.01, Total Protein 7.5, Albumin 4.1, Globulin 3.4 H, Albumin/Globulin Ratio 1.2 Result diagrams: 04/06/22 21:39 04/06/22 21:39 Orders (Tests/Meds): ED MEDICATIONS Generic Name Dose Route Start Last Admin Trade Name Freq PRN Reason Stop Dose Admin Sodium Chloride 1,000 mls @ 999 mls/hr 04/06/22 22:30 04/06/22 22:41 Sod Chlor 0.9% 1000ml Bag IV 04/06/22 23:30 999 mls/hr .Q1H1M SAMARA Administration Discontinued Medications Generic Name Dose Route Start Last Admin Trade Name Freq PRN Reason Stop Dose Admin Aspirin 325 mg 04/06/22 22:05 04/06/22 22:11 Aspirin 325mg Tablet PO 04/06/22 22:06 325 mg ONCE ONE Administration Ketorolac Tromethamine 15 mg 04/06/22 22:18 04/06/22 22:41 Ketorolac 30mg/Ml Vial IV 04/06/22 22:19 15 mg ONCE ONE Administration ORDERS Category Date Time Status Troponin I Q3H Lab 04/07/22 00:24 Received Troponin I Q3H Lab 04/07/22 03:45 Ordered - ECG Data Tracing #1 Sinus rhythm with ventricular rate of 93 beats minute. QRS 88, QTc 360. ST segment flattening in most leads. No ST segment elevation. - DAYSI Score for Non-Stemi Age of Patient: 40-49 years old Heart Rate: 90-109 bpm Systolic Blood Pressure: 140-159 mmHg Serum Creatinine: 0.80-1.19 mg/dl CHF Killip Class: I-No CHF Other Risk Factors: None Non-Stemi Risk Score: 71 Medical Decision Narrative: In summary this is a 46-year-old female with history of CVA presenting to the emergency department with headache, chest pain. Patient clinically stable on arrival. Vital signs within normal limits. Will obtain CBC, CMP, COVID test, noncontrast h
[2022-04-06 21:59] LABS: Chloride 102 mmol/L (98-107); Potassium 4.1 mmoL/L (3.5-5.1); Sodium 137 mmol/L (136-145)
[2022-04-06 22:01] LABS: Alanine Aminotransferase 35 U/L (12-78); Alkaline Phosphatase 138 U/L (38-126); Aspartate Amino Transferase 37 U/L (14-36); Bilirubin,Total 0.4 mg/dl (0.2-1.3); Blood Urea Nitrogen 13 mg/dl (7-17); Creatinine Clearance Estimated 92 mL/min (50-200); Estimated Glomerular Filt Rate 48 ml/min (>60); GFR (African American) 59 ML/MIN (>60)
[2022-04-06 22:02] LABS: Albumin Level 4.1 g/dl (3.5-5.0); Albumin/Globulin Ratio 1.2 (1.1-1.8); Anion Gap 11.1 mEq/L (5-15); Calcium 8.9 mg/dl (8.4-10.2); Carbon Dioxide 28 mmol/L (22.0-30.0); Globulin 3.4 g/dL (1.3-3.2); Glucose 99 mg/dl (74-100); Total Protein,Serum 7.5 g/dl (6.3-8.2)
[2022-04-06 22:21] LABS: Troponin I < 0.01 ng/ml (0.00-0.034)
[2022-04-07 01:22] LABS: Troponin I < 0.01 ng/ml (0.00-0.034)
[2022-04-07 01:23] VITALS: BP 120/90; PULSE 87; RESP 18; TEMP 36.7; O2SAT 97
== END 2022-04-07 01:56 | disposition home or self-care (01) ==
PROVIDERS: Emergency Provider Emergency Medicine
DX: R07.89 Other chest pain (principal); E78.5 Hyperlipidemia, unspecified; G44.209 Tension-type headache, unspecified, not intractable; F17.210 Nicotine dependence, cigarettes, uncomplicated; Z79.82 Long term (current) use of aspirin; Z86.73 Personal history of transient ischemic attack (TIA), and cerebral infarction without residual deficits
CPT/HCPCS: 70450; 71045; 80053; 84484; 85025; 93005; 96361; 96374; 99285

== ENCOUNTER 2022-04-21 15:46 | Emergency (ER) | payer MEDICARE, BC, SELFPAY ==
[2022-04-21] VITALS (9 sets, daily range): BP systolic 135–163; BP diastolic 84–93; PULSE 66–72; RESP 16–18; TEMP 36.6–36.7; O2SAT 94–99; BMI 43.0
--- NOTE | 2022-04-21 16:05 | XR_ITS ---
PROCEDURE INFORMATION: Exam: XR Right Foot Exam date and time: 04/21/2022 4:32 PM Age: 46 years old Clinical indication: Pain; Foot; Right; Additional info: Sore on bottom of foot TECHNIQUE: Imaging protocol: Radiologic exam of the Right foot. Views: 3 or more views. COMPARISON: CR XR TIBIA FIBULA RT 2V 03/27/2020 4:06 PM FINDINGS: Bones/joints: Bones are osteopenic. There is no evidence of acute fracture. Soft tissues: Dorsal and plantar soft tissue swelling. IMPRESSION: 1. Dorsal and plantar soft tissue swelling. 2. Bones are osteopenic. 3. No evidence of acute fracture.
--- NOTE | 2022-04-21 16:06 | HMH.EDGENADL ---
Discharge Plan Disposition Patient Disposition: Home, Self-Care Condition: Good Prescriptions Prescriptions: New cephalexin 500 mg capsule 500 mg PO Q6H Qty: 40 0RF No Action erythromycin 5 mg/gram (0.5 %) ointment 1 applic OPHTHALMIC DAILY 10 Days Qty: 1 0RF clonazepam 0.5 mg tablet 0.5 mg PO BID Qty: 60 5RF gabapentin 400 mg capsule 400 mg PO BID Qty: 60 5RF atorvastatin 20 MG tablet 20 mg PO HS citalopram 20 MG tablet 20 mg PO DAILY aspirin 81 MG tablet,chewable 81 mg PO DAILY buspirone 15 MG tablet 15 mg PO BID aripiprazole 5 MG tablet 5 mg PO DAILY bupropion HCl 300 MG tablet extended release 24 hr 300 mg PO DAILY cholecalciferol (vitamin D3) 1,250 MCG capsule 50,000 unit PO WEEKLY Activity Restrictions/Add. Instructions Additional Instructions/Restrictions: Take Keflex as prescribed. Clean the area of the blister daily, apply Neosporin ointment and bandage. Primary care provider, Dr. Mata, to follow-up culture results and provide further care. Return emergency department if fever greater than 100 degrees, increasing swelling, redness, or red streaks, or pus drainage. Clinical Impressions Clinical Impression: Blister, Edema of right foot Instructions Patient Instructions: DI for Skin Abscess Discharge ED Provider: Roscoe Perez General Adult HPI General Chief complaint: Skin/Abscess/Foreign Body Stated complaint: Wound to r-foot Time Seen by Provider: 04/21/22 16:00 Mode of Arrival: EMS Source of Information: Patient and Medical Record Limitations: No Limitations Description of Symptoms (Recalled from ER Triage Doc. by RN): Pt presents with a popped blister to bottom outer rt foot. Staff states that pt has a brace that she wears on her rt foot d/t a previous stroke and pt had taken out the insole of the brace, which rubbed a blister to the foot. History of Present Illness HPI narrative: Brought in by ambulance from [facility] for a wound on the bottom of her right foot. Patient is poor historian. She says it has been present for 4-5 days. It is painful. Her foot is swollen, she does not know how long it has been swollen. No fever noted. The wound is weeping serous fluid. Staff reports that they sent a photo of the wound to Dr. Mata, patient's primary care provider, and he advised him to have her sent to the emergency department. She states she is not diabetic. She states that she removed the insole from her shoe because of the blister, because it was hurting. Related Data Home Medications Medication Instructions Recorded Confirmed aripiprazole 5 mg tablet 5 mg PO DAILY Depression 05/26/20 11/22/20 aspirin 81 mg chewable tablet 81 mg PO DAILY CAD 05/26/20 11/22/20 atorvastatin 20 mg tablet 20 mg PO HS Cholesterol 05/26/20 11/22/20 bupropion HCl 300 mg 24 hr tablet, 300 mg PO DAILY Depression 05/26/20 11/22/20 extended release buspirone 15 mg tablet 15 mg PO BID Depression 05/26/20 11/22/20 cholecalciferol (vitamin D3) 1,250 50,000 unit PO WEEKLY Diet 05/26/20 11/22/20 mcg (50,000 unit) capsule supplement citalopram 20 mg tablet 20 mg PO DAILY Depression 05/26/20 11/22/20 Previous Rx's Medication Instructions Recorded erythromycin 5 mg/gram (0.5 %) eye 1 applic ophthalmic (eye) DAILY 10 09/23/20 ointment days #1 g clonazepam 0.5 mg tablet 0.5 mg PO BID Anxiety #60 tabs 11/07/21 gabapentin 400 mg capsule 400 mg PO BID pain #60 caps 11/16/21 cephalexin 500 mg capsule 500 mg PO Q6H #40 caps 04/21/22 Allergies Allergy/AdvReac Type Severity Reaction Status Date / Time No Known Allergies Allergy Verified 11/22/20 14:47 PFSH PFSH Social History Smoking Status: Never smoker alcohol intake: never current occupational status: unemployed Travel in the last 8 weeks: None ROS Obtained: Yes Systems reviewed as appropriate & no additional complaints except as documented [place]
--- NOTE | 2022-04-21 16:20 | PC.NURSE ---
Pt taken for foot Xray
[2022-04-21 16:27] LABS: Basophils # 0.1 K/mm3 (0-0.2); Basophils % 1.5 % (0.1-2.0); Eosinophils # 0.3 K/mm3 (0.0-0.4); Eosinophils % 4.1 % (0.1-12.0); Hematocrit 41.1 % (37.0-47.0); Hemoglobin 13.3 g/dL (12.2-16.2); Lymphocytes # 2.3 K/mm3 (0.7-4.5); Lymphocytes % 29.9 % (10-50); Mean Corpuscular HGB Conc 32.3 g/dL (31.8-35.4); Mean Corpuscular Hemoglobin 32.2 pg (27.0-31.2); Mean Corpuscular Volume 99.7 fl (81-99); Mean Platelet Volume 9.2 fl (7.4-10.4); Monocytes # 0.4 K/mm3 (0.1-1.0); Monocytes % 4.7 % (1.7-9.3); Neutrophils # 4.5 K/mm3 (1.8-7.8); Neutrophils % 59.6 % (37.0-80.0); Platelet Count 268 K/mm3 (142-424); Red Blood Count 4.13 M/mm3 (4.20-5.40); Red Cell Distribution Width 14.1 % (11.5-17.5); White Blood Count 7.6 K/mm3 (4.8-10.8)
--- NOTE | 2022-04-21 16:27 | PC.NURSE ---
Pt is back from xray
[2022-04-21 16:38] LABS: Anion Gap 10.3 mEq/L (5-15); Blood Urea Nitrogen 16 mg/dl (7-17); Calcium 9.2 mg/dl (8.4-10.2); Carbon Dioxide 30 mmol/L (22.0-30.0); Chloride 104 mmol/L (98-107); Creatinine Clearance Estimated 42 mL/min (50-200); Estimated Glomerular Filt Rate 48 ml/min (>60); GFR (African American) 59 ML/MIN (>60); Glucose 72 mg/dl (74-100); Potassium 4.3 mmoL/L (3.5-5.1); Sodium 140 mmol/L (136-145)
[2022-04-21 16:43] LABS: C-Reactive Protein 21.4 mg/L (0-4)
[2022-04-21 16:59] LABS: Erythrocyte Sedimentation Rate 30 mm/hr (0-20)
[2022-04-21 17:02] LABS: Procalcitonin < 0.030 ng/mL (0.0-2.0)
--- NOTE | 2022-04-21 18:25 | PC.NURSE ---
Paging Dr Martines again
--- NOTE | 2022-04-21 18:26 | PC.NURSE ---
speaking with Dr Martines at this time
--- NOTE | 2022-04-21 18:55 | PC.NURSE ---
BLISTER ON R FOOT CLEANED AND NEOSPORIN AND DRESSING APPLIED
--- NOTE | 2022-04-21 19:01 | PC.NURSE ---
NOBODY ANSWERING THE PHONE AT [facility] CALLED AND THEY ARE GONNA SEND THEM OUT TO GET HER IN APPROX 20 MINUTES
== END 2022-04-21 20:28 | disposition home or self-care (01) ==
PROVIDERS: Emergency Provider Emergency Medicine; PCP Emergency Medicine
DX: R60.0 Localized edema (principal); M85.80 Other specified disorders of bone density and structure, unspecified site; E78.5 Hyperlipidemia, unspecified; Z79.82 Long term (current) use of aspirin; Z79.899 Other long term (current) drug therapy; Z86.73 Personal history of transient ischemic attack (TIA), and cerebral infarction without residual deficits
CPT/HCPCS: 73630; 80048; 84145; 85025; 85651; 86140; 87070; 87077; 87186; 87205; 99283

== ENCOUNTER → 2022-04-28 10:21 | Outpatient (CLI) | payer MEDICARE, BC, SELFPAY ==
--- NOTE | 2022-04-28 10:22 | US_ITS ---
FINAL REPORT CLINICAL HISTORY: CLAUDICATION MARCY,REST PAIN MARCY,CVA,SMOKER,WOUND RT HEEL,RT GREAT TOE REDNESS FINDINGS: ANKLE-BRACHIAL PRESSURE INDICES Pressure indices are as follows: RIGHT LOWER EXTREMITY: Ankle-brachial pressure index: 1.18 Comments: Normal LEFT LOWER EXTREMITY: Ankle-brachial pressure index: 1.27 Comments: Normal IMPRESSION: No evidence of significant obstructive peripheral vascular disease of the lower extremities Reviewed, Interpreted and Dictated by Kali Nava III, MD Transcribed by Jelly Meyer Authenticated and [facility]
--- NOTE | 2022-04-28 10:22 | CA_ITS ---
FINAL REPORT TECHNIQUE: Color Doppler, duplex Doppler and compression sonography of the right lower extremity venous system was performed. CLINICAL HISTORY: RLE pain/EDEMA TDS-PT HAS HAD PRIOR CVA WITH RT SIDED DEFICIT FINDINGS: There is no evidence of deep venous thrombosis from the level of the groin to the calf. The veins are patent and compressible. IMPRESSION: No evidence of deep venous thrombosis right lower extremity. Reviewed, Interpreted and Dictated by Kali Nava III, MD Transcribed by Ambrocio Fernando Authenticated and [facility]
== END ==
PROVIDERS: PCP Emergency Medicine; Visit Provider Nurse Practitioner
DX: E78.5 Hyperlipidemia, unspecified (principal); F17.200 Nicotine dependence, unspecified, uncomplicated; I73.9 Peripheral vascular disease, unspecified; M79.604 Pain in right leg; R60.0 Localized edema; Z86.73 Personal history of transient ischemic attack (TIA), and cerebral infarction without residual deficits
CPT/HCPCS: 93923; 93971

== ENCOUNTER → 2022-05-23 09:57 | Outpatient (CLI) | payer MEDICARE, BC, SELFPAY ==
--- NOTE | 2022-05-23 10:01 | XR_ITS ---
FINAL REPORT CLINICAL HISTORY: foot pain COMPARISON: 04/21/2022 FINDINGS: Right foot Three views were obtained. There is no acute fracture or dislocation. There is a valgus angulation of the forefoot, stable. The joint spaces appear normal. No soft tissue abnormality is identified. IMPRESSION: No acute process. Reviewed, Interpreted and Dictated by Kali Nava III, MD Transcribed by Rekha Zhou Authenticated and [facility]
[2022-05-23 11:23] LABS: Basophils # 0.1 K/mm3 (0-0.2); Basophils % 1.9 % (0.1-2.0); Eosinophils # 0.2 K/mm3 (0.0-0.4); Eosinophils % 2.8 % (0.1-12.0); Hematocrit 43.8 % (37.0-47.0); Hemoglobin 13.9 g/dL (12.2-16.2); Lymphocytes # 1.8 K/mm3 (0.7-4.5); Lymphocytes % 26.9 % (10-50); Mean Corpuscular HGB Conc 31.6 g/dL (31.8-35.4); Mean Corpuscular Hemoglobin 31.6 pg (27.0-31.2); Mean Corpuscular Volume 99.9 fl (81-99); Monocytes # 0.4 K/mm3 (0.1-1.0); Monocytes % 6.1 % (1.7-9.3); Neutrophils # 4.2 K/mm3 (1.8-7.8); Neutrophils % 62.4 % (37.0-80.0); Platelet Count 295 K/mm3 (142-424); Red Blood Count 4.39 M/mm3 (4.20-5.40); Red Cell Distribution Width 14.3 % (11.5-17.5); White Blood Count 6.7 K/mm3 (4.8-10.8)
[2022-05-23 12:22] LABS: Erythrocyte Sedimentation Rate 46 mm/hr (0-20)
[2022-05-23 12:50] LABS: Chloride 102 mmol/L (98-107); Sodium 142 mmol/L (136-145)
[2022-05-23 12:53] LABS: Alanine Aminotransferase 21 U/L (12-78); Albumin Level 4.2 g/dl (3.5-5.0); Albumin/Globulin Ratio 1.3 (1.1-1.8); Alkaline Phosphatase 141 U/L (38-126); Aspartate Amino Transferase 27 U/L (14-36); Bilirubin,Total 0.4 mg/dl (0.2-1.3); Blood Urea Nitrogen 14 mg/dl (7-17); Carbon Dioxide 29 mmol/L (22.0-30.0); Estimated Glomerular Filt Rate 48 ml/min (>60); GFR (African American) 59 ML/MIN (>60); Globulin 3.2 g/dL (1.3-3.2); Total Protein,Serum 7.4 g/dl (6.3-8.2)
[2022-05-23 12:54] LABS: Calcium 9.1 mg/dl (8.4-10.2); Glucose 77 mg/dl (74-100)
[2022-05-23 13:00] LABS: C-Reactive Protein 35.3 mg/L (0-4)
== END ==
PROVIDERS: PCP Emergency Medicine; Visit Provider Nurse Practitioner Family
DX: S91.301A Unspecified open wound, right foot, initial encounter; L97.519 Non-pressure chronic ulcer of other part of right foot with unspecified severity; B95.7 Other staphylococcus as the cause of diseases classified elsewhere; R79.82 Elevated C-reactive protein (CRP)
CPT/HCPCS: 36415; 73630; 80053; 85025; 85651; 86140; 87070; 87077; 87186; 87205

== ENCOUNTER → 2022-06-27 09:38 | Outpatient (POV) | payer MEDICARE, BC, SELFPAY | PROVIDERS: Visit Provider Dermatology | DX: Z00.00 Encounter for general adult medical examination without abnormal findings (principal) ==

== ENCOUNTER → 2022-06-27 11:12 | Outpatient (CLI) | payer MEDICARE, BC, SELFPAY ==
--- NOTE | 2022-06-27 11:16 | XR_ITS ---
FINAL REPORT CLINICAL HISTORY: right ankle pain best images possible FINDINGS: RIGHT ANKLE: Three simulated weight-bearing views of the right ankle were obtained. There is no acute fracture or dislocation. The joint spaces and mortise are intact. There is soft tissue swelling about the ankle. IMPRESSION: Swelling with no acute bony abnormality. Reviewed, Interpreted and Dictated by Dave Pendleton MD Transcribed by Ambrocio Fernando Authenticated and [facility]
== END ==
PROVIDERS: PCP Emergency Medicine; Visit Provider Nurse Practitioner Family
DX: M25.571 Pain in right ankle and joints of right foot (principal)
CPT/HCPCS: 73610

== ENCOUNTER 2023-03-19 17:57 | Emergency (ER) | payer MEDICARE, BC, SELFPAY ==
[2023-03-19 17:57] VITALS: BP 111/75; PULSE 70; RESP 18; TEMP 36.8; O2SAT 96; BMI 35.2
[2023-03-19 18:01] VITALS: BP 106/65; PULSE 69; O2SAT 96
[2023-03-19 18:31] VITALS: BP 92/58; PULSE 67; O2SAT 97
[2023-03-19 19:01] VITALS: BP 91/62; PULSE 58; O2SAT 96
--- NOTE | 2023-03-19 19:17 | XR_ITS ---
PROCEDURE INFORMATION: Exam: XR Left Elbow Exam date and time: 03/19/2023 7:21 PM Age: 47 years old Clinical indication: Pain; Elbow; Left TECHNIQUE: Imaging protocol: Radiologic exam of the left elbow. Views: 1 or 2 views. COMPARISON: No relevant prior studies available. FINDINGS: Bones/joints: Cortical irregularity along the lateral epicondyle compatible with chronic sequelae of epicondylitis. No acute fracture or malalignment. No significant elbow joint effusion. Soft tissues: Unremarkable. IMPRESSION: 1. No evidence of acute osseous abnormality in the left elbow. 2. Cortical irregularity along the lateral epicondyle compatible with chronic sequelae of epicondylitis.
--- NOTE | 2023-03-19 19:37 | HMH.EDGENADL ---
Discharge Plan Disposition Patient Disposition: Home, Self-Care Prescriptions Prescriptions: No Action aripiprazole 15 mg tablet 15 mg PO DAILY baclofen 10 mg tablet 10 mg PO DAILY diclofenac sodium 50 mg tablet,delayed release (DR/EC) 50 mg PO clonazepam 0.5 mg tablet 0.5 mg PO BID Qty: 60 0RF gabapentin 400 mg capsule 400 mg PO BID Qty: 60 5RF atorvastatin 20 MG tablet 20 mg PO HS citalopram 20 MG tablet 20 mg PO DAILY aspirin 81 MG tablet,chewable 81 mg PO DAILY buspirone 15 MG tablet 15 mg PO BID bupropion HCl 300 MG tablet extended release 24 hr 300 mg PO DAILY cholecalciferol (vitamin D3) 1,250 MCG capsule 50,000 unit PO WEEKLY Referrals Follow up/Referrals: Provider,Referral, MD [Primary Care Provider] - See instructions Activity Restrictions/Add. Instructions Additional Instructions/Restrictions: No emergent medical condition identified please have further outpatient work-up for your chronic upper extremity swelling. No evidence of any DVT today. X-ray of the left elbow was normal. Clinical Impressions Clinical Impression: Elbow pain, left, Swelling of right upper extremity Discharge ED Provider: Jeffery Sheffield General Adult HPI General Chief complaint: Extremity Injury, Upper Stated complaint: Right arm swelling Time Seen by Provider: 03/19/23 19:14 Mode of Arrival: EMS Source of Information: Patient Limitations: No Limitations Description of Symptoms (Recalled from ER Triage Doc. by RN): Patient states that her right arm and under her eyes have been swollen for months. Patient resides at [facility] where Dr. Mata requested for her to be sent to the er for evaluation and treatment. History of Present Illness HPI narrative: 47-year-old female with a history of CVA resident from sitting on sent here for right upper extremity swelling as well as some ecchymosis on the left elbow. She denies any injuries. She denies any shortness of breath. She states that her arm has been swollen for several months. No hemoptysis no chest pain. Related Data Home Medications Medication Instructions Recorded Confirmed aspirin 81 mg chewable tablet 81 mg PO DAILY CAD 05/26/20 09/07/22 atorvastatin 20 mg tablet 20 mg PO HS Cholesterol 05/26/20 09/07/22 bupropion HCl 300 mg 24 hr tablet, 300 mg PO DAILY Depression 10/07/20 01/19/23 extended release buspirone 15 mg tablet 15 mg PO BID Depression 05/26/20 09/07/22 cholecalciferol (vitamin D3) 1,250 50,000 unit PO WEEKLY Diet 05/26/20 09/07/22 mcg (50,000 unit) capsule supplement citalopram 20 mg tablet 20 mg PO DAILY Depression 05/26/20 09/07/22 aripiprazole 15 mg tablet 15 mg PO DAILY 06/06/22 09/07/22 baclofen 10 mg tablet 10 mg PO DAILY 06/06/22 09/07/22 diclofenac sodium 50 mg 50 mg PO 06/06/22 09/07/22 tablet,delayed release Previous Rx's Medication Instructions Recorded clonazepam 0.5 mg tablet 0.5 mg PO BID Anxiety #60 tabs 02/21/23 gabapentin 400 mg capsule 400 mg PO BID pain #60 caps 02/21/23 Allergies Allergy/AdvReac Type Severity Reaction Status Date / Time No Known Allergies Allergy Verified 07/18/22 14:12 [facility] Disclaimer: The information contained in this section may have been updated after the patient was seen, as this information can be updated by other users. Medical History History of CVA (cerebrovascular accident) Hyperlipidemia Social History Smoking Status: Never smoker alcohol intake: never current occupational status: unemployed Travel in the last 8 weeks: None ROS Obtained: Yes All systems reviewed & no additional complaints except as documented Physical Exam General General appearance: alert Respiratory Respiratory exam: Present normal lung sounds bilaterally Cardiovascular Cardiovascular exam: Present regular
[2023-03-19 20:09] LABS: D-Dimer 0.49 ug/mL (0.0-0.5)
[2023-03-19 20:17] VITALS: BP 91/62; PULSE 62; RESP 16; TEMP 36.7; O2SAT 95
--- NOTE | 2023-03-19 20:20 | PC.NURSE ---
attempted to call Jaime Paniagua, no answer.
--- NOTE | 2023-03-19 20:26 | PC.NURSE ---
attempted again to call issa munoz, no answer.
== END 2023-03-19 20:22 | disposition home or self-care (01) ==
PROVIDERS: Emergency Provider Student in an Organized Health Care Education/Training Program
DX: R22.31 Localized swelling, mass and lump, right upper limb (principal); R22.0 Localized swelling, mass and lump, head; S50.02XA Contusion of left elbow, initial encounter; Z86.73 Personal history of transient ischemic attack (TIA), and cerebral infarction without residual deficits; X58.XXXA Exposure to other specified factors, initial encounter; E78.5 Hyperlipidemia, unspecified; Z79.82 Long term (current) use of aspirin
CPT/HCPCS: 73070; 85378; 99283

== ENCOUNTER 2023-06-30 13:45 | Emergency (ER) | payer MEDICARE, BC, SELFPAY ==
[2023-06-30 13:57] VITALS: BP 129/77; PULSE 72; RESP 19; TEMP 36.7; O2SAT 98; BMI 33.4
[2023-06-30 14:01] VITALS: BP 106/71; PULSE 78; O2SAT 84
[2023-06-30 14:30] VITALS: BP 109/68; PULSE 74; RESP 18; O2SAT 97
[2023-06-30 14:35] VITALS: BP 127/86; PULSE 74; O2SAT 100
--- NOTE | 2023-06-30 15:13 | XR_ITS ---
PROCEDURE INFORMATION: Exam: XR Pelvis Exam date and time: 06/30/2023 5:00 PM Age: 47 years old Clinical indication: Injury or trauma; Fall; Blunt trauma (contusions or hematomas); Bilateral; Pelvic region; Additional info: Fall, head/facial injury TECHNIQUE: Imaging protocol: Radiologic exam of the pelvis. Views: 1 or 2 view. COMPARISON: No relevant prior studies available. FINDINGS: Bones/joints: Unremarkable. No acute fracture. Soft tissues: Unremarkable. IMPRESSION: No acute findings.
--- NOTE | 2023-06-30 15:13 | CT_ITS ---
PROCEDURE INFORMATION: Exam: CT Head Without Contrast Exam date and time: 06/30/2023 5:31 PM Age: 47 years old Clinical indication: Injury or trauma; Fall; Blunt trauma (contusions or hematomas); Additional info: Fall, head/facial injury TECHNIQUE: Imaging protocol: Computed tomography of the head without contrast. Radiation optimization: All CT scans at this facility use at least one of these dose optimization techniques: automated exposure control; mA and/or kV adjustment per patient size (includes targeted exams where dose is matched to clinical indication); or iterative reconstruction. REPORTING DATA: Count of CT and Cardiac NM exams in prior 12 months: This patient has received 0 known CTs and 0 known cardiac nuclear medicine studies in the 12 months prior to the current study. COMPARISON: CT HEAD/BRAIN WO CON 04/06/2022 9:36 PM FINDINGS: Brain: Old left temporal posttraumatic encephalomalacia. Periventricular and subcortical small vessel ischemic changes. Moderate atrophy associated. No acute hemorrhage, mass effect, midline shift, or extra-axial fluid collection. Cerebral ventricles: No ventriculomegaly. Paranasal sinuses: Visualized sinuses are unremarkable. No fluid levels. Mastoid air cells: Visualized mastoid air cells are well aerated. Bones/joints: Old left temporal craniotomy with subjacent encephalomalacia. Soft tissues: Frontal subgaleal hematoma 2.5 cm. IMPRESSION: 1. Frontal subgaleal hematoma 2.5 cm. 2. Old left temporal craniotomy with subjacent encephalomalacia.
--- NOTE | 2023-06-30 15:13 | XR_ITS ---
PROCEDURE INFORMATION: Exam: XR Chest Exam date and time: 06/30/2023 5:00 PM Age: 47 years old Clinical indication: Injury or trauma; Fall; Blunt trauma (contusions or hematomas); Additional info: Fall, head/facial injury TECHNIQUE: Imaging protocol: Radiologic exam of the chest. Views: 1 view. COMPARISON: CR XR CHEST PORTABLE 04/06/2022 9:54 PM FINDINGS: Lungs: Unremarkable. No consolidation. Pleural spaces: Unremarkable. No pleural effusion. No pneumothorax. Heart/Mediastinum: Unremarkable. No cardiomegaly. Bones/joints: Unremarkable. IMPRESSION: No acute findings.
--- NOTE | 2023-06-30 15:13 | CT_ITS ---
PROCEDURE INFORMATION: Exam: CT Maxillofacial Without Contrast Exam date and time: 06/30/2023 5:37 PM Age: 47 years old Clinical indication: Injury or trauma; Fall; Blunt trauma (contusions or hematomas); Forehead; Additional info: Fall, head/facial injury TECHNIQUE: Imaging protocol: Computed tomography of the face without contrast. Radiation optimization: All CT scans at this facility use at least one of these dose optimization techniques: automated exposure control; mA and/or kV adjustment per patient size (includes targeted exams where dose is matched to clinical indication); or iterative reconstruction. REPORTING DATA: Count of CT and Cardiac NM exams in prior 12 months: This patient has received 0 known CTs and 0 known cardiac nuclear medicine studies in the 12 months prior to the current study. COMPARISON: CT HEAD/BRAIN WO CON 06/30/2023 5:31 PM FINDINGS: Orbital cavities: Orbits are normal. Globes are unremarkable. Bones/joints: No acute fracture. Paranasal sinuses: Normal. No air-fluid levels. Soft tissues: Large frontal subgaleal hematoma. 2.5 cm. IMPRESSION: 1. Large frontal subgaleal hematoma. 2.5 cm. 2. No acute maxillofacial fractures.
--- NOTE | 2023-06-30 15:13 | CT_ITS ---
PROCEDURE INFORMATION: Exam: CT Cervical Spine Without Contrast Exam date and time: 06/30/2023 5:34 PM Age: 47 years old Clinical indication: Injury or trauma; Fall; Blunt trauma; Additional info: Fall, head/facial injury TECHNIQUE: Imaging protocol: Computed tomography of the cervical spine without contrast. Radiation optimization: All CT scans at this facility use at least one of these dose optimization techniques: automated exposure control; mA and/or kV adjustment per patient size (includes targeted exams where dose is matched to clinical indication); or iterative reconstruction. REPORTING DATA: Count of CT and Cardiac NM exams in prior 12 months: This patient has received 0 known CTs and 0 known cardiac nuclear medicine studies in the 12 months prior to the current study. COMPARISON: CT HEAD/BRAIN WO CON 06/30/2023 5:31 PM FINDINGS: Bones/joints: No acute fracture. Normal alignment. C2-C3: No significant disc bulge or herniation. No severe spinal canal stenosis. No significant neural foraminal narrowing. C3-C4: No significant disc bulge or herniation. No severe spinal canal stenosis. No significant neural foraminal narrowing. C4-C5: No significant disc bulge or herniation. No severe spinal canal stenosis. No significant neural foraminal narrowing. C5-C6: Calcified anterior osteophytes. No significant disc bulge or herniation. No severe spinal canal stenosis. No significant neural foraminal narrowing. C6-C7: Disc space narrowing. Calcified osteophytes anteriorly and posteriorly. No significant disc bulge or herniation. No severe spinal canal stenosis. No significant neural foraminal narrowing. C7-T1: No significant disc bulge or herniation. No severe spinal canal stenosis. No significant neural foraminal narrowing. Lungs: Lung apices are normal. Soft tissues: Unremarkable. IMPRESSION: No acute traumatic findings.
--- NOTE | 2023-06-30 15:29 | PC.NURSE ---
EXAMINER RATING CLERK FOUND A BUG CRAWLING ON PT WAS CAPTURED WITH A PIECE OF TAPE AND SENT TO LAB IN A SPECIMEN CUP, ALSO CALLED AND LET LAB KNOW WHAT WAS BEING SENT UP FOR WHAT WAS TO BELIEVE TO BE A BEDBUG BUT NEEDED OFFICIAL CONFORMATION
--- NOTE | 2023-06-30 15:35 | HMH.EDGENADL ---
Discharge Plan Disposition Patient Disposition: Xfer Other Condition: Good Prescriptions Prescriptions: No Action aripiprazole 15 mg tablet 15 mg PO DAILY baclofen 10 mg tablet 10 mg PO DAILY diclofenac sodium 50 mg tablet,delayed release (DR/EC) 50 mg PO BID gabapentin 400 mg capsule 400 mg PO BID Qty: 60 5RF clonazepam 0.5 mg tablet 0.5 mg PO BID Qty: 60 2RF atorvastatin 20 MG tablet 20 mg PO HS citalopram 20 MG tablet 20 mg PO DAILY aspirin 81 MG tablet,chewable 81 mg PO DAILY buspirone 15 MG tablet 15 mg PO BID bupropion HCl 300 MG tablet extended release 24 hr 300 mg PO DAILY cholecalciferol (vitamin D3) 1,250 MCG capsule 50,000 unit PO WEEKLY Referrals Follow up/Referrals: Provider,Referral, MD [Primary Care Provider] - See instructions Activity Restrictions/Add. Instructions Additional Instructions/Restrictions: You were evaluated in the emergency department today. Please keep the compressive wrap on your forehead for 24 hours. Ice the area to reduce swelling. Return to the emergency department for new or worsening symptoms. Clinical Impressions Clinical Impression: Traumatic hematoma of forehead, Abrasion of forehead, Infestation by bed bug Instructions Patient Instructions: DI for Hematoma (Bruise), How to Prevent Falls Discharge ED Provider: Megan Trujillo General Adult HPI General Chief complaint: Fall Stated complaint: Fall Time Seen by Provider: 06/30/23 13:49 Mode of Arrival: EMS Source of Information: Patient Limitations: No Limitations Description of Symptoms (Recalled from ER Triage Doc. by RN): 47 yo F presents to ED with c/o fall and laceration. EMS reports pt was at [employer] with her family. pt was walking out of the restaurant and tripped on the curb and fell face first onto the pavement. pt does have large hematoma on forehead, and small laceration on her nose. History of Present Illness HPI narrative: This patient is a 47-year-old female with a history of CVA presenting after a mechanical ground-level fall. Patient tripped while stepping off of the curb and face planted onto the concrete. She did not lose consciousness. She does have abrasions to her face as well as a hematoma to her forehead, but no other injuries noted at this time. at baseline, patient is a very poor historian and is not able to contribute much to history. History is obtained with the help of family and EMS. Patient is reportedly at her baseline currently. She has been ambulatory since the event. No other concerns noted at this time. Patient currently resides at [facility]. Related Data Home Medications Medication Instructions Recorded Confirmed aspirin 81 mg chewable tablet 81 mg PO DAILY CAD 05/26/20 06/30/23 atorvastatin 20 mg tablet 20 mg PO HS Cholesterol 05/26/20 06/30/23 bupropion HCl 300 mg 24 hr tablet, 300 mg PO DAILY Depression 05/26/20 06/30/23 extended release buspirone 15 mg tablet 15 mg PO BID Depression 05/26/20 06/30/23 cholecalciferol (vitamin D3) 1,250 50,000 unit PO WEEKLY Diet 05/26/20 06/30/23 mcg (50,000 unit) capsule supplement citalopram 20 mg tablet 20 mg PO DAILY Depression 05/26/20 06/30/23 aripiprazole 15 mg tablet 15 mg PO DAILY 06/06/22 06/30/23 baclofen 10 mg tablet 10 mg PO DAILY 06/06/22 06/30/23 diclofenac sodium 50 mg 50 mg PO BID 06/06/22 06/30/23 tablet,delayed release Previous Rx's Medication Instructions Recorded clonazepam 0.5 mg tablet 0.5 mg PO BID Anxiety #60 tabs 06/21/23 gabapentin 400 mg capsule 400 mg PO BID pain #60 caps 06/21/23 Allergies Allergy/AdvReac Type Severity Reaction Status Date / Time No Known Allergies Allergy Verified 06/30/23 14:07 [facility] Disclaimer: The information contained in this section may have been updated after the patient was seen, as this information can be updated by other users. Medical History (Reviewed 06/30/23 @ 16:59
--- NOTE | 2023-06-30 15:40 | PC.NURSE ---
LAB CALLED AND STATED THAT THE BUG SENT WAS A BEDBUG
--- NOTE | 2023-06-30 16:23 | PC.NURSE ---
MY SELF AND EDIN(SRNA) WENT IT DEBUGGED PT AFTER COMFORMING WITH LAB THAT IS WAS A BED BUG FOUND BY RAD PT CLOTHES AND SHOES ALONG WITH LEG BRACE WAS PLACED IN BAG ALSO DOUBLE BAGGED AND LABEL WITH PT STICKER AND PLACED OUTSIDE OF BAY DOORS IN ED. WE ALSO CHANGED LINENS AND TRASH THEY WERE DOUBLE BAG AND PLACED BESIDE PT BELONGING BAG OUTSIDE OF ED.. PT IS NOW IN GOWN AND WARM BLANKET WITH NON SKID SOCKS PLACED RESTING IN BED, NO OTHER NEEDS AT THIS TIME
[2023-06-30 17:01] VITALS: BP 129/70; PULSE 71; O2SAT 98
--- NOTE | 2023-06-30 17:42 | PC.NURSE ---
pressure dressing applied. pack of 4x4's and kerlix applied
--- NOTE | 2023-06-30 17:48 | PC.NURSE ---
call made to [facility] for pt ride due to d/c. staff report that they do not have car availability or staff to come get pt. asked staff to contact management to get pt ride.
[2023-06-30 18:51] VITALS: BP 129/70; PULSE 71; RESP 16; TEMP 36.7
== END 2023-06-30 18:52 | disposition other institution (70) ==
PROVIDERS: Emergency Provider Emergency Medicine
DX: S00.03XA Contusion of scalp, initial encounter (principal); B88.8 Other specified infestations; E78.5 Hyperlipidemia, unspecified; Z86.73 Personal history of transient ischemic attack (TIA), and cerebral infarction without residual deficits; W10.1XXA Fall (on)(from) sidewalk curb, initial encounter; Z23 Encounter for immunization
CPT/HCPCS: 70450; 70486; 71045; 72125; 72170; 90715; 96372; 99285